=== PATIENT | male | born 1965 | race Caucasian/White ===

== ENCOUNTER 2017-01-31 15:06 | Emergency (ER) | payer BC ==
[2017-01-31 15:24] VITALS: BP 122/83
--- NOTE | 2017-02-02 10:33 | ER ---
Date of Service: 01/31/2017 REASON FOR VISIT: Right index finger injury. HISTORY: The patient is a 51-year-old white male, sustained a laceration to the tip of his right index finger this afternoon when he was using a hacksaw with his right hand, cutting off a bolt and somehow the hacksaw slipped and he jammed comes his finger into the bolt. He noted quite a bit of bleeding. He applied the pressure dressing on it and came in the emergency room for treatment. He has not had any loss of sensation or function in the finger that he notes. MEDICATIONS: None. ALLERGIES: None known. OBJECTIVE: GENERAL: He is alert. VITAL SIGNS: Afebrile, pulse 99 and regular, BP is 122/83, respirations 18, and oxygen sats 95% on room air. The right index finger does have a small laceration of the tip of the finger at the tip of the nail. It does not gape open anymore. He has a cut towards the tip. Capillary refill is good. Sensations are intact. The DIP joint has full range of motion and tendon functions are normal. He has active flexion and extension against resistance at the DIP joint. X-rays of the right index finger. No fractures are identified. ASSESSMENT: Laceration at the tip of right index finger. PLAN: It did not feel like that it required a repair at this time. It as it is a small and closed down, now does not gape open. Recommend local wound care, daily dressing with a tight Band-Aid, and then bacitracin applications daily. Monitor for signs of infection. Call or return if problems or concerns. FM: 01/31/2017 16:01:58 MODL: 01/31/2017 16:59:09 /[id number]
== END 2017-01-31 16:05 | disposition home or self-care (01) ==
LOC: SUPCPDRO 15:06 → VM.ED 15:06
DX: S61.210A Laceration without foreign body of right index finger without damage to nail, initial encounter (principal); W45.8XXA Other foreign body or object entering through skin, initial encounter
CPT/HCPCS: 73140-F6; 99283

== ENCOUNTER 2021-01-30 19:51 | Emergency (ER) | payer BC ==
[2021-01-30] MEDS ORDERED: Amoxicillin/Clavulanate K 875-125 MG Tab PO ONE (20:04)
--- NOTE | 2021-01-30 20:11 | EDM.PDOC ---
ED HPI GENERAL MEDICAL PROBLEM - General Stated Complaint: CAT BITE Time Seen by Provider: 01/30/21 19:51 Source of Information: Reports: Patient History Limitations: Reports: No Limitations - History of Present Illness INITIAL COMMENTS - FREE TEXT/NARRATIVE: Patient comes emergency department today with complaints of a cat bite to his right thumb. Just prior to arrival the patient was at home when he was playing with his cat when it suddenly turned around and bit him on the left dorsum of the base of his right thumb. He is unsure of when his last tetanus shot was. He denies any paresthesia or change in functionality of his right thumb. His cat is primarily an indoor cat does not have his rabies vaccine and is not ill at this time. NO COVID exposure no COVID symptoms. Right thumb Pain Score (Numeric/FACES): 3 - Related Data Allergies Allergy/AdvReac Type Severity Reaction Status Date / Time No Known Allergies Allergy Verified 01/31/17 15:17 Home Meds: Home Meds Amoxicillin/Potassium Clav [Augmentin 875-125 Tablet] 1 each PO BID #14 tablet 01/30/21 [Rx] Past Medical History HEENT History: Reports: Allergic Rhinitis - Past Surgical History Musculoskeletal Surgical History: Reports: Other (See Below) Social & Family History - Caffeine Use Caffeine Use: Reports: Soda ED ROS GENERAL - Review of Systems Review Of Systems: Comprehensive ROS is negative, except as noted in HPI. ED EXAM, SKIN/RASH Exam: See Below Exam Limited By: No Limitations General Appearance: Alert, WD/WN, No Apparent Distress Respiratory/Chest: No Respiratory Distress Cardiovascular: Normal Peripheral Pulses, Regular Rate, Rhythm Peripheral Pulses: 2+: Radial (L), Radial (R) Extremities: No: Normal Inspection (Exam is isolated to the right hand. On the dorsal aspect of his right base of his thumb there is multiple superficial pinpoint puncture wounds at the point of the MCP joint. He is able to flex and extend appropriately at the IP joint of the right thumb. He can also do this at the MCP joint of the right thumb. There is normal CMS in the right thumb. There is no erythema induration swelling. The rest of the right hand is atraumatic and unremarkable.) Skin: Warm, Dry, Intact, Normal Color, No Rash Course - Vital Signs Last Recorded V/S: Last Vital Signs Temp 98 F 03/03/21 19:51 Pulse 81 01/30/21 19:51 Resp 16 01/30/21 19:51 BP 166/89 H 01/30/21 19:51 Pulse Ox 99 01/30/21 19:51 - Orders/Labs/Meds Meds: Medications Discontinued Medications Generic Name Dose Route Start Last Admin Trade Name Orion PRN Reason Stop Dose Admin Amoxicillin/Clavulanate Potassium 1 tab 01/30/21 20:04 01/30/21 20:19 Augmentin 875 Mg/125 Mg PO 01/30/21 20:05 1 tab ONETIME ONE Administration - Re-Assessments/Exams Free Text/Narrative Re-Assessment/Exam: His tetanus immunization was verified is up-to-date in 2017. He was given a dose of Augmentin in the emergency department and a prescription to fill at home. We will hold off on any rabies vaccinations at this time as he owns the cat himself and will observe and if the cat becomes ill the next day or 2 he will immediately get rabies vaccinations either in the clinic or the emergency department. He is clearly understanding of this and his questions are answered. He understands to watch for increasing signs of infection or tendon involvement which I do not identify but the concern of tendon sheath infection is there as well although I think it is unlikely. Discharge instructions as below are explained to the patient he was comfortable with this plan and his questions were answered. Departure - Departure Time of Disposition: 20:11 Disposition: Home, Self-Care 01 Clinical Impression: Cat bite of hand Qualifiers: Encounter type: initial encounter Laterality: right Qualified Code(s): S61.451A - Open bite of right hand, initial encounter - Discharge Information Prescriptions: Amoxicillin/Potassium Clav [Augmentin 875-125 Tablet] 1 each PO BID #14 tablet Instructions: Animal Bite, Adult, [id number] Referrals: PCP,None [Primary Care Provider] - Forms: ED Department Discharge Additional Instructions: Tylenol and or Ibuprofen as need for pain discomfort. Bacitracin and bandage until healed. Augmentin 1 tablet twice daily for the next 7 days. First dose given in the ED and RX sent to [facility]. Watch for infection. Your last tetanus was 2016 so your good on that. If the cat becomes ill in the next few days you will need Rabbies vaccine. Can be given in the clinic. Return to the ED if new or worsening symptoms. Follow up in the clinic if any concerns. Sepsis Event Note (ED) - Focused Exam Vital Signs: Vital Signs Temp Pulse Resp BP Pulse Ox 01/30/21 19:51 98 F 81 16 166/89 H 99
[2021-01-30 20:58] VITALS: BP 166/89; PULSE 81
== END 2021-01-30 20:26 | disposition home or self-care (01) ==
LOC: VM.ED 19:51
DX: S61.051A Open bite of right thumb without damage to nail, initial encounter (principal); W54.0XXA Bitten by dog, initial encounter
CPT/HCPCS: 99283; A9270-GY